=== PATIENT | male | born 1995 | race African-American/Black ===

== ENCOUNTER 2017-05-05 17:51 | Emergency (ER) | payer MEDICAID ==
[~2017-05-05] VITALS: Ht 175.3 cm; Wt 70.0 kg
[2017-05-05 17:57] VITALS: BP 130/79
== END 2017-05-05 20:43 | disposition left against medical advice (07) ==
LOC: ER 20:41
DX: Z53.21 Procedure and treatment not carried out due to patient leaving prior to being seen by health care provider (principal); Z88.8 Allergy status to other drugs, medicaments and biological substances

== ENCOUNTER 2017-06-18 13:15 | Emergency (ER) | payer MEDICAID ==
[~2017-06-18] VITALS: Ht 175.3 cm; Wt 73.0 kg
[2017-06-18 13:50] VITALS: BP 125/77
== END 2017-06-18 17:12 | disposition left against medical advice (07) ==
LOC: ER 13:15
DX: R52 Pain, unspecified (principal); Z53.21 Procedure and treatment not carried out due to patient leaving prior to being seen by health care provider

== ENCOUNTER 2017-07-02 12:35 | Emergency (ER) | payer MEDICAID ==
[~2017-07-02] VITALS: Ht 175.3 cm; Wt 73.0 kg
[2017-07-02 12:37] VITALS: BP 112/55
== END 2017-07-02 17:55 | disposition left against medical advice (07) ==
LOC: ER 12:52
DX: R10.9 Unspecified abdominal pain (principal); Z53.21 Procedure and treatment not carried out due to patient leaving prior to being seen by health care provider

== ENCOUNTER 2017-07-03 09:06 | Emergency (ER) | payer MEDICAID ==
[~2017-07-03] VITALS: Ht 177.8 cm; Wt 80.0 kg
[2017-07-03] MEDS ORDERED: ACETAMINOPHEN 325MG TABLET PO ONE (15:00)
[2017-07-03] MEDS ORDERED: SODIUM CHLORIDE 0.9% 1,000 ML IV ONE (15:03)
[2017-07-03 15:35] LABS: GLUCOSE URINE NEGATIVE (NEGATIVE); KETONES URINE NEGATIVE (NEGATIVE); LEUKOCYTE ESTERASE URINE NEGATIVE (NEGATIVE); NITRITE URINE NEGATIVE (NEGATIVE); OCCULT BLOOD URINE NEGATIVE (NEGATIVE); PH URINE 7.5 (4.5-8.0); PROTEIN URINE NEGATIVE (NEGATIVE); SPECIFIC GRAVITY URINE 1.012 (1.005-1.030)
[2017-07-03 15:38] LABS: BASOPHILS % 0.3 % (0.0-2.0); EOSINOPHILS % 0.9 % (0.0-5.0); HEMATOCRIT. 42.7 % (42.0-52.0); HEMOGLOBIN. 14.8 g/dL (14.0-18.0); LYMPHOCYTES % 23.6 % (20.0-50.0); MEAN CORPUSCULAR HEMOGLOBIN 30.4 pg (28.0-32.0); MEAN CORPUSCULAR VOLUME 87.9 fL (80.0-94.0); MEAN PLATELET VOLUME 8.2 fl (7.4-10.4); MONOCYTES % 7.2 % (2.0-8.0); PLATELET 158 x1000/uL (130-400); RED BLOOD CELL COUNT 4.85 mill/uL (4.7-6.1)
[2017-07-03 15:43] LABS: INR 1.1; PROTHROMBIN TIME 11.6 sec (9.4-11.6)
[2017-07-03 15:47] LABS: CARBON DIOXIDE 27 mEq/L (21-32); CHLORIDE 107 mEq/L (98-107)
[2017-07-03 16:57] LABS: COLOR URINE YELLOW (YELLOW)
[2017-07-03 16:58] LABS: CLARITY URINE CLEAR (CLEAR)
[2017-07-03 17:30] VITALS: BP 144/78
== END 2017-07-03 19:33 | disposition home or self-care (01) ==
LOC: ER 09:24
DX: K92.0 Hematemesis (principal); R31.9 Hematuria, unspecified; K92.1 Melena; F32.9 Major depressive disorder, single episode, unspecified
CPT/HCPCS: 36415; 73130; 74176; 80053; 81003; 83690; 85025; 85610; 96360; 96361; 99285; Z7610; J7030

== ENCOUNTER 2017-07-04 15:42 | Emergency (ER) | payer MEDICAID ==
[~2017-07-04] VITALS: Ht 175.3 cm; Wt 80.0 kg
[2017-07-04] MEDS ORDERED: KETOROLAC 60MG/2ML VIAL IM ONE (18:30)
[2017-07-04 19:59] VITALS: BP 105/52
[2017-07-05] MEDS ORDERED: SERT25TA PO (11:44)
== END 2017-07-04 21:32 | disposition home or self-care (01) ==
LOC: ER 16:37
DX: M25.512 Pain in left shoulder (principal); J34.89 Other specified disorders of nose and nasal sinuses
CPT/HCPCS: 70486; 73030; 96372; 99284; J1885

== ENCOUNTER 2017-07-05 11:40 | Emergency (ER) | payer MEDICAID ==
[~2017-07-05] VITALS: Ht 172.7 cm; Wt 70.0 kg
[2017-07-05] MEDS ORDERED: SERT25TA PO (11:44)
[2017-07-05] MEDS ORDERED: KETOROLAC 60MG/2ML VIAL IM ONE (14:30)
[2017-07-05 16:12] VITALS: BP 110/78
== END 2017-07-05 16:13 | disposition home or self-care (01) ==
LOC: ER 11:54
DX: S06.0X0A Concussion without loss of consciousness, initial encounter (principal); S16.1XXA Strain of muscle, fascia and tendon at neck level, initial encounter; F31.9 Bipolar disorder, unspecified; F32.9 Major depressive disorder, single episode, unspecified; Z88.8 Allergy status to other drugs, medicaments and biological substances; Y04.0XXA Assault by unarmed brawl or fight, initial encounter; Y93.89 Activity, other specified; Y92.018 Other place in single-family (private) house as the place of occurrence of the external cause
CPT/HCPCS: 96372; 99283; J1885; Z7610

== ENCOUNTER 2017-07-08 06:29 | Emergency (ER) | payer MEDICAID ==
[~2017-07-08] VITALS: Ht 175.3 cm; Wt 72.5 kg
[~2017-07-08 06:29] MED LIST: SERT25TA PO
[2017-07-08 10:05] VITALS: BP 105/52
== END 2017-07-08 10:08 | disposition home or self-care (01) ==
LOC: ER 07:25
DX: G89.29 Other chronic pain (principal); M79.641 Pain in right hand; F17.200 Nicotine dependence, unspecified, uncomplicated; Z88.8 Allergy status to other drugs, medicaments and biological substances
CPT/HCPCS: 73130; 99284